=== PATIENT | female | born 1980 | race Caucasian/White ===

== ENCOUNTER 2016-07-20 16:23 | Emergency (ER) | payer OTHER ==
[~2016-07-20 16:23] MED LIST: ACIPHEX20 MG PO; ALBUTEROL17 GM; ANTI-ITCH28 GM TOP; ANTIBIOTIC; ATARAX PO; BAYER ASPIRIN325 M1; BENADRYL25 M1 PO; BUSPAR PO; CELEXA PO; CIPRO; COMBIVENT INH14.7 GM; COMBIVENT INH14.7 GM INH; COMBIVENT U/D3 ML INH; DEPAKOTE PO; DICLOFENAC PO; FLEXERIL10 MG PO; IBUPROFEN800 MG PO; KEFLEX500 M1 PO; MEDROL PO; NAPROSYN500 MG PO; NEURONTIN PO; PERCOCET; PERCOCET5/325 PO; PHENERGAN25 M1 PO; PHENERGAN25 MG PO; PROVERA10 MG PO; PROZAC; PYRIDIUM; PYRIDIUM PO; ROBAXIN500 MG PO; SEROQUEL PO; SILVADENE TOP; SYMBICORT; TRAZODONE PO; TYLENOL #3 PO; TYLENOL325 M1 PO; ULTRAM PO; VIBRAMYCIN100 M1 PO; VICODIN 5/1 TAB 5/50 PO; WELLBUTRIN XL PO; WELLBUTRIN75 M1 PO; ZYRTEC; ZYRTEC10 M2
== END 2016-07-20 16:30 | disposition left against medical advice (07) ==
LOC: CED 16:23
DX: T40.1X1A Poisoning by heroin, accidental (unintentional), initial encounter (principal); J45.909 Unspecified asthma, uncomplicated; F32.9 Major depressive disorder, single episode, unspecified; F17.200 Nicotine dependence, unspecified, uncomplicated; Z79.899 Other long term (current) drug therapy
CPT/HCPCS: 99283

== ENCOUNTER 2016-10-22 04:19 | Emergency (ER) | payer OTHER | END 2016-10-22 05:11 | disposition home or self-care (01) | LOC: CED 04:19 | DX: L03.113 Cellulitis of right upper limb (principal); F15.10 Other stimulant abuse, uncomplicated; K21.9 Gastro-esophageal reflux disease without esophagitis; F41.9 Anxiety disorder, unspecified; F17.210 Nicotine dependence, cigarettes, uncomplicated; Z98.890 Other specified postprocedural states; Z88.1 Allergy status to other antibiotic agents; Z88.8 Allergy status to other drugs, medicaments and biological substances; Z23 Encounter for immunization | CPT/HCPCS: 90471; 90715; 96372; 99283; J1885 ==

== ENCOUNTER 2016-10-24 07:57 | Inpatient (IN) | payer OTHER ==
--- NOTE | ~2016-10-24 | HP ---
Unit #: [id number] #: [id number] Patient: GET PAIGE [id number] [address] [address] [id number] I MR#: [id number] NAME: GET PAIGE ROOM: 40476 Age: 36 Sex: F Admission Date: 10/24/2016 : 1980 Attending Physician: Marcy Rojas M.D. Primary Care Physician: [facility] HISTORY AND PHYSICAL CHIEF COMPLAINT Overdose. HISTORY OF PRESENT ILLNESS The patient is a 36-year-old female with a past medical history of polysubstance abuse, asthma, depression, allergic rhinitis, degenerative joint disease, GERD, who presented to the emergency department for evaluation of the above. History is obtained from chart review and discussion with the ER staff due to patient's altered mental status. She was apparently a daily IV methamphetamine user. She was found shooting up in another patient's car on the evening prior to admission but security let her go. Today, she was found running and screaming on hospital property. She was brought to the emergency department for further evaluation. In the emergency department, initial pulse and blood pressure were 93 and 119/72 respectively. Urine tox screen is positive for amphetamine and opiates. Glucose is 52. CPK is 1045. She was given 2 L of normal saline as well as an amp of D50. She is being admitted to [facility] for evaluation and further treatment. PAST MEDICAL HISTORY 1. Admission to [facility] December 27 through the 2014, for right antecubital fossa cellulitis/abscess. She underwent incision and drainage during that admission. Wound culture grew MSSA. 2. Asthma. 3. Depression. 4. Allergic rhinitis. 5. Degenerative joint disease. 6. GERD. PAST SURGICAL HISTORY 1. Incision and drainage right antecubital fossa. 2. Left leg surgery. SOCIAL HISTORY Per record review, the patient lives with her sister. She is an IV drug user. She is also a smoker. FAMILY HISTORY Unobtainable due to altered mental status. Unit #: [id number] #: [id number] Patient: GET PAIGE ALLERGIES Citalopram, vancomycin, linezolid. HOME MEDICATIONS Zoloft. REVIEW OF SYSTEMS A complete review of systems is unobtainable from the patient due to altered mental status. DIAGNOSTIC STUDIES CARDIOVASCULAR: EKG shows sinus tachycardia with a rate of 135 beats/minute. LABORATORY: Initial glucose was 52, INR is 1.1. Beta hCG is negative. Comprehensive metabolic panel notable for CO2 of 20, anion gap of 10, glucose 46. Calcium is 12.1. AST and ALT are 153 and 210 respectively. Alkaline phosphatase is 96. CPK is 1045. Salicylate and alcohol levels are negative. Tylenol level is 30. Complete blood count notable for white blood cell count of 18.6. Urinalysis notable for trace protein, 2+ blood. Urine tox screen is positive for amphetamine and opiates. PHYSICAL EXAMINATION VITAL SIGNS: Temperature is 98, pulse 93, respirations 19, blood pressure 119/72. Oxygen saturation 100% on room air. GENERAL: The patient is a white female who is lethargic but wakes to physical stimuli. HEENT: The head is atraumatic. Mucous membranes are dry. NECK: Supple. Trachea is midline. CARDIOVASCULAR: Regular rate and rhythm. LUNGS: Clear to auscultation bilaterally with no increased work of breathing. ABDOMEN: Soft, nontender. Bowel sounds present in all four quadrants. EXTREMITIES: Nontender with no pedal edema. NEURO: The patient is lethargic but wakes to physical stimuli. She is moving all extremities. PSYCH: The patient demonstrates poor insight and judgement. SKIN: Demonstrates multiple injection sites and sores on extremities. ASSESSMENT The patient is a 36-year-old female with: 1. Altered mental status secondary to #2. 2. Polysubstance abuse: The patient's tox screen was positive for amphetamine and opiates. 3. Hypoglycemia with an initial glucose of 52 and glucose of 46 on comprehensive metabolic panel. The patient received an amp of D50. There is no history of diabetes. 4. Transaminitis. 5. Rhabdomyolysis with an initial CPK of 1045. 6. Leukocytosis with no obvious source of infection. 7. Hypercalcemia. 8. History of asthma. Unit #: [id number] #: [id number] Patient: GET PAIGE 9. Depression. 10. Allergic rhinitis. 11. Degenerative joint disease. 12. Gastroesophageal reflux disease. 13. Tobacco abuse. PLAN 1. Admit for observation to intermediate level. 2. NPO until awake and passes bedside swallow. 3. TSH, B12 and folate. 4. Neuro checks q.[address] Alonso regarding altered mental status and polysubstance abuse. 6. Sitter. 7. Frequent Accu-Cheks. 8. Hemoglobin A1c. 9. D5 half normal saline at 150 mL/hour, to start now. 10. Right upper quadrant ultrasound regarding transaminitis. 11. HIV and hepatitis panel. 12. Blood cultures x2 for further evaluation of leukocytosis. 13. Chest x-ray again for further evaluation of leukocytosis. 14. Supplemental oxygen. 15. P.r.n. Zofran. 16. Cardiac enzymes. 17. Repeat Tylenol level. 18. SCDs for DVT prophylaxis. 19. Repeat labs in the morning including CPK. 20. Additional workup and consultants based on above. Dictated by Darlin Negron/keiry TD: 10/24/2016 12:15 JOB #: [id number] HISTORY AND PHYSICAL Page 1 of 1 X Marcy Rojas MD X HISTORY AND PHYSICAL
--- NOTE | ~2016-10-24 | CR72 ---
[facility] A Service of [facility] RADIOLOGY TEXT RESULTS PATIENT: GET PAIGE LOCATION: [facility] 337-01 : [birth year] UNIT #: [id number] AGE: [address]: Marcy Rojas MD SEX: F ORDER DR: [id number] [facility] [address]. [place], [place] [address] [id number] I MR#: [id number] Acc #: [id number] NAME: GET PAIGE : 1980 SEX: F STUDY DATE/TIME: 10/24/2016 8:33 UNIT: CEDOF ROOM: 57136 STUDY DESCRIPTION: CR Chest Single View Portable Attending Physician: Marcy Rojas M.D. Ordering Physician: Parish Tobias M.D. Primary Care Physician: [facility] MEDICAL IMAGING REPORT This report is preliminary unless electronic signature is present EXAM Portable chest radiograph INDICATION Overdose this morning. Patient does have a history of asthma and chronic bronchitis. FINDINGS A single AP portable view of the chest shows both lungs to be clear. The heart is normal in size. The mediastinal contour is normal. No significant bone abnormalities are seen. IMPRESSION Negative. Dictated by... Lacy Nava M.D. THIS IS AN ELECTRONICALLY VERIFIED REPORT Lacy Nava M.D. at 10/25/2016 10:49 AM LONDON/edna TD: 10/24/2016 13:56 JOB #: [id number] MEDICAL IMAGING REPORT Page 1 of 1 COPY
--- NOTE | ~2016-10-24 | EKG ---
PATIENT: GET PAIGE UNIT #: [id number] Ventricular Rate: 135 BPM Atrial Rate: 135 BPM P-R Interval: 184 ms QRS Duration: 76 ms Q-T Interval: 248 ms QTC Calculation(Bezet): 372 ms P Rubicon: 65 degrees Calculated R Rubicon: 75 degrees Calculated T Rubicon: -17 degrees Diagnosis Line: Sinus tachycardia Diagnosis Line: ST and T wave abnormality, consider inferior Diagnosis Line: ischemia Diagnosis Line: Abnormal ECG Diagnosis Line: No previous ECGs available Diagnosis Line: Confirmed by FELICIA GONZALEZ MD ([id number]) on 10/25/2016 Diagnosis Line: 4:38:34 PM INTERPRETING MD: CARLOS SOSA
--- NOTE | ~2016-10-24 | CO ---
Unit #: [id number] #: [id number] Patient: EGT PAIGE [id number] [address] [address] [id number] I MR#: [id number] NAME: GET PAIGE ROOM: 337 Age: 36 Sex: F Admission Date: 10/24/2016 : 1980 Attending Physician: Kimberly Frances M.D. Primary Care Physician: [facility] Consultation Date: 10/26/2016 CONSULTATION REPORT REASON FOR CONSULTATION Followup. DISCUSSION Ms. Get Paige is a 36-year-old white female, seen in room 337, bed 1 on 10/26/2016. The patient was admitted after overdose. The patient is sad, dysphoric, flat affect, withdrawn, dressed in hospital attire, lying comfortably in bed. The patient is compliant and cooperative and has a sitter and the patient did not show any agitation. The patient's blood glucose 176 this morning. The patient's vital signs; temperature is 98.2, pulse 87, respiratory rate 18, blood pressure 128/74, oxygen saturation 97%. The patient is currently on no psychotropic medication. The patient's urine toxicology was positive for amphetamine and opiates. REVIEW OF SYSTEMS Complete review of system is unremarkable. MENTAL STATUS EXAMINATION The patient's vital signs; temperature 98.2, pulse 87, respiratory rate 18, blood pressure 128/74, and oxygen saturation 97%. General appearance; the patient is moderately obese, dressed casually. Attention span and concentration, fair. Speech, regular rate and monotone. Mood and affect, sad and dysphoric. Thought process, coherent. Thought content, the patient denied any thoughts of harming others, but recent suicide attempt. Denied any current suicidal ideation. Recent and remote memory, fair. Language, intact. Fund of knowledge, fair. Insight and judgment, fair to slightly impaired. DIAGNOSES Psychiatric: 1. Major depressive disorder, recurrent, severe, F33.2. 2. Opioid use disorder, severe, F11.20. 3. Amphetamine use disorder, severe, F15.20. ASSESSMENT/PLAN 1. Supportive psychotherapy and psychoeducation provided to the patient. 2. Educated about benefits and side effects of medication and course and prognosis of illness. 3. Advised to continue with current treatment with a plan to consider transferring the patient to [facility] for psychiatric stabilization. Please feel free to call if any questions, telephone #[phone]. Unit #: [id number] #: [id number] Patient: GET PAIGE Dictated by... Darlin Mendoza/hakeem TD: 10/26/2016 23:34 JOB #: [id number] CONSULTATION REPORT Page 1 of 1 X Noe Alonso MD X CONSULTATION REPORT
--- NOTE | ~2016-10-24 | CO ---
Unit #: [id number] #: [id number] Patient: GET PAIGE [id number] [address] [address] [id number] I MR#: [id number] NAME: GET PAIGE ROOM: 337 Age: 36 Sex: F Admission Date: 10/24/2016 : 1980 Attending Physician: Marcy Rojas M.D. Primary Care Physician: [facility] CONSULTATION REPORT JOB NOTE: ADDENDUM ADDENDUM PAST PSYCHIATRIC HISTORY History of IV drug abuse, history of depression. MEDICAL HISTORY Remarkable for history of last admission in 2014 for antecubital fossa cellulitis abscess, asthma, depression, allergic rhinitis, degenerative joint disease, GERD. MEDICATIONS The patient is on Zofran and IV fluids. FAMILY HISTORY AND SOCIAL HISTORY The patient has a poor support system. No history of abuse. History of IV drug abuse. Drug of choice is amphetamine and opioids. REVIEW OF SYSTEMS Complete review of system is unremarkable except as mentioned above. MENTAL STATUS EXAMINATION Vital signs; temperature 98.2, pulse 95, respiratory rate 20, blood pressure 135/89, and oxygen saturation 98%. General appearance; the patient dressed casually, no facial deformity noted, in hospital attire. Attention span and concentration, poor. Speech, slow and drifting into sleep. Orientation in self and place. Mood and affect, labile. Thought process, circumstantial. Thought content, guarded and paranoid. Reported taking overdose and did not elaborate, somewhat guarded and paranoid. Recent and remote memory, poor. Language, fair to poor. Fund of knowledge, poor. Insight and judgment, impaired. DIAGNOSES Psychiatric: Major depressive disorder, recurrent, severe, F33.2; delirium, F05; opioid use disorder, severe, F11.20; amphetamine use disorder, severe, F15.20. Secondary diagnosis: Deferred. Medical diagnosis: Please refer to H and P. Stressors: Psychosocial stressors. Unit #: [id number] #: [id number] Patient: GET PAIGE ASSESSMENT/PLAN 1. Supportive psychotherapy and psychoeducation provided to the patient. 2. Educated about benefits and side effects of medication and course and prognosis of illness. 3. Advised no medication at this time. Monitor the patient's mood and behavior closely. If needed, consider medication. Plan to stabilize the patient and consider transferring the patient to [facility] for inpatient psychiatric stabilization. Please feel free to call if any questions, telephone #[phone]. Dictated by... Noe Alonso M.D. MARI/hakeem TD: 10/25/2016 23:08 JOB #: [id number] CONSULTATION REPORT Page 1 of 1 X Noe Alonso MD X CONSULTATION REPORT
--- NOTE | ~2016-10-24 | US5 ---
[facility] A Service of [facility] RADIOLOGY TEXT RESULTS PATIENT: GET PAIGE LOCATION: [facility] : 78 UNIT #: [id number] AGE: [address]: Marcy Rojas MD SEX: F ORDER DR: [id number] [facility]. [place], [place] [address] [id number] I MR#: [id number] Acc #: [id number] NAME: GET PAIGE : 1980 SEX: F STUDY DATE/TIME: 10/24/2016 12:43 [facility]: [facility] STUDY DESCRIPTION: US Abdominal Complete Attending Physician: Marcy Rojas M.D. Ordering Physician: Marcy Rojas M.D. Primary Care Physician: [facility] MEDICAL IMAGING REPORT This report is preliminary unless electronic signature is present EXAM Abdominal sonogram. HISTORY Abdominal pain for 1 day. FINDINGS Longitudinal and transverse sonograms of the abdomen were obtained. Liver is sonographically normal. Gallbladder appears unremarkable. Right kidney measures at least 10.2 cm. Common duct measures 9 mm in diameter. Aorta is of normal caliber. The left kidney measures 12.3 cm and appears sonographically normal. Spleen measures 10.8 cm and appears normal. Pancreas is not seen. CONCLUSIONS 1. Mild extrahepatic biliary dilatation with common duct measuring up to 9 mm. 2. Nonvisualization of the pancreas. 3. Limited study due to the patient's body habitus. All other findings are normal. Dictated by... Sebas Porter M.D. THIS IS AN ELECTRONICALLY VERIFIED REPORT Sebas Porter M.D. at 10/25/2016 9:17 AM LYDIA/bart TD: 10/24/2016 19:04 JOB #: [id number] MEDICAL IMAGING REPORT [facility] A Service [facility] RADIOLOGY TEXT RESULTS PATIENT: GET PAIGE LOCATION: [facility] : 78 UNIT #: [id number] AGE: [address]: Marcy Rojas MD SEX: F ORDER DR: Page 1 of 1 COPY
--- NOTE | ~2016-10-24 | CO ---
Unit #: [id number] #: [id number] Patient: GET PAIGE [id number] [address] [address] [id number] I MR#: [id number] NAME: GET PAIGE ROOM: 337 Age: 36 Sex: F Admission Date: 10/24/2016 : 1980 Attending Physician: Kimberly Frances M.D. Primary Care Physician: [facility] Consultation Date: 10/27/2016 CONSULTATION REPORT REASON FOR CONSULTATION Followup. DISCUSSION Ms. Get Paige is a 36-year-old female, seen in room 337, bed 1 on 10/27/2016 at [facility]. The patient was admitted with the overdose. The patient is followed since admission. Reports feeling better. Denied any suicidal ideation or homicidal ideation. The patient is agreeable to follow up in the outpatient program. The patient reports that she has a good support system from her and other family member. The patient was compliant, cooperative, and showed improvement in her mood. Vital signs; temperature 98.7, pulse 64, respiratory rate 18, blood pressure 142/86, and oxygen saturation 98%. The patient is currently denied any suicidal or homicidal ideation. Denied any psychotic symptom. REVIEW OF SYSTEMS Complete review of systems unremarkable. MENTAL STATUS EXAMINATION The patient's vital signs; temperature 98.7, pulse 64, respiratory rate 18, blood pressure 142/86, and oxygen saturation 98%. General appearance; the patient dressed casually, lying comfortably in bed. Attention span and concentration, fair. Speech, regular rate and coherent. Oriented in time, place, and person. Mood and affect; sad, dysphoric, made good eye contact, cooperative. Thought process, coherent. Thought content, the patient denied any thoughts of harming self or others or any psychotic symptom. Recent and remote memory, fair. Language, intact. Fund of knowledge, fair to slightly impaired. DIAGNOSIS Psychiatric: Major depressive disorder, recurrent, severe, F33.2. ASSESSMENT/PLAN 1. Supportive psychotherapy and psychoeducation provided to the patient. 2. Educated about benefits and side effects of medication and course and prognosis of illness. 3. Advised to continue with current treatment with a plan to consider discharge home once the patient is medically stable and follow up in [facility]. The patient agreed with the plan. Please feel free to call if any questions, telephone #[phone]. Unit #: [id number] #: [id number] Patient: GET PAIGE Dictated by... Darlin Mendoza/hakeem TD: 10/27/2016 22:31 JOB #: [id number] CONSULTATION REPORT Page 1 of 1 X Noe Alonso MD X CONSULTATION REPORT
--- NOTE | ~2016-10-24 | CO ---
Unit #: [id number] #: [id number] Patient: GET PAIGE [id number] [facility] [address] [facility]. [place], [place] [address] [id number] I MR#: [id number] NAME: GET PAIGE ROOM: 337 Age: 36 Sex: F Admission Date: 10/24/2016 : 1980 Attending Physician: Marcy Rojas M.D. Primary Care Physician: [facility] Consultation Date: 10/24/2016 CONSULTATION REPORT REASON FOR CONSULTATION Initial psych assessment. HISTORY OF PRESENT ILLNESS Ms. Get Beyer is a 36-year-old white female, seen in room 337, bed 1 on 10/24/2016 at [facility]. The patient dressed casually, somewhat sleepy, drowsy, drifting in sleep. During interview, the patient reported history of depression, history of substance abuse. Coming to the hospital, not able to give a coherent history, very sleepy and drowsy. The patient's information obtained from the chart, nursing staff, sitter. The patient did not show any agitation, but confused. PAST PSYCHIATRIC HISTORY Remarkable for history of depression. The patient reports she takes medication for depression. The patient has a history of polysubstance abuse, IV drug abuse. Last admitted in 2014 at [facility] with right cubital fossa cellulitis with abscess. SEE ADDENDUM Dictated by... Darlin Mendoza/hakeem TD: 10/26/2016 00:01 JOB #: [id number] CONSULTATION REPORT Page 1 of 1 X Noe Alonso MD X CONSULTATION REPORT
--- NOTE | ~2016-10-24 | DS ---
Unit #: [id number] #: [id number] Patient: GET PAIGE [id number] [address] [address] [id number] I MR#: [id number] NAME: GET PAIGE ROOM: 337 Age: 36 Sex: F Admission Date: 10/24/2016 : 1980 Discharge Date: Attending Physician: Kimberly Frances M.D. Primary Care Physician: [facility] DISCHARGE SUMMARY DISCHARGE DIAGNOSES 1. Polysubstance abuse, positive for amphetamines and opiates. 2. Hypoglycemia. 3. Transaminitis secondary to overdose. 4. Fever. Initial diagnosis of sepsis but no source of infection found. Blood cultures, chest x-ray and urinalysis negative. Likely secondary to overdose. 5. Acute rhabdomyolysis. 6. Leukocytosis. No obvious source of infection. 7. Hypercalcemia. 8. History of asthma. 9. Diarrhea, clostridium difficile pending. 10. Toxic metabolic encephalopathy, resolved. 11. Occult positive stool secondary to menstrual blood. 12. Depression, which is major depressive according to Dr. Alonso. 13. Smoking. 14. Gastroesophageal reflux disease. 15. Degenerative joint disease. 16. Hypomagnesemia. 17. Hypocalcemia. CONSULTATIONS Dr. Alonso. PROCEDURES None. DIAGNOSTIC TESTING LAB DATA: Glucose 98, sodium 140, potassium 3.8, creatinine 0.7, AST 57, ALT 107, total protein 5.8, albumin 3. WBC 9.1, hemoglobin 11.5, platelets 212. Occult blood in stool positive. C. diff. pending. Blood cultures negative. Urinalysis - No sign of infection. IMAGING: Chest x-ray negative. Ultrasound of the abdomen - Mild extrahepatic biliary dilatation. No other acute findings. ALLERGIES Vancomycin, Celexa, Zyvox. DISCHARGE MEDICATIONS None. Unit #: [id number] #: [id number] Patient: GET PAIGE HOSPITALIZATION COURSE A 36 year old admitted because of overdose with amphetamines and opiates. Patient was seen by Dr. Alonso. The patient is under 72-hour hold with a sitter. [facility] The patient is medically stable to go to [facility]. Major depression. The patient was seen by Dr. Alonso. Treatment as per him. Change in mental status, toxic metabolic encephalopathy from drug overdose. Fever, likely from overdose. No source of infection. Diarrhea. C. diff. pending. Currently diarrhea better. Hypoglycemia secondary to poor p.o. intake from change in mental status. Currently resolved. Occult blood positive in stool. Secondary to mixing of menstrual blood. No active bleeding otherwise. Acute rhabdomyolysis. The patient received IV fluids. Currently resolved. PLAN Patient is medically stable to go to [facility]. Follow with family physician 1 week upon discharge. DISCHARGE DISPOSITION Discharge to [facility]. NOTE: Discharge time taken is 32 minutes. Dictated by... Darlin Roach/tessy TD: 10/27/2016 11:52 JOB #: [id number] DISCHARGE SUMMARY Page 1 of 1 X Kimberly Frances MD X DISCHARGE SUMMARY
[2016-10-24 09:31] LABS: BASOPHIL% 0.1 % (0-2.5); EOSINOPHIL% 0.3 % (0.0-7.0); HEMATOCRIT 39.3 % (35.0-45.0); HEMOGLOBIN 12.8 gm/dL (12.0-16.0); LYMPHOCYTE# 0.9 X10e3 (1.0-3.5); LYMPHOCYTE% 4.7 % (17.0-45.0); MEAN CELL VOLUME 96.4 FL (83-96); MEAN CORPUSCULAR HEMOGLOBIN 31.4 PG (28-34); MEAN CORPUSCULAR HGB CONC 32.5 g/dL (30-36); MEAN PLATELET VOLUME 8.3 FL (6.5-11.5); MONOCYTE# 1.1 X10e3 (0-1.0); MONOCYTE% 5.7 % (3.0-12.0); NEUTROPHIL# 16.6 X10e3 (1.5-7.1); NEUTROPHIL% 89.2 % (40-75); PLATELET COUNT 267 X10e3 (140-420); RED BLOOD COUNT 4.08 X10e (3.90-5.30); RED CELL DISTRIBUTION WIDTH 13.8 % (11.0-15.5); WHITE BLOOD COUNT 18.6 X10e3 (4.0-10.5)
[2016-10-24 09:33] LABS: DIFF IND YES
[2016-10-24 09:38] LABS: INR 1.1
[2016-10-24 09:55] LABS: ACETAMINOPHEN 30 ug/mL; ALBUMIN SERUM 4.1 g/dL (3.5-5.0); ALKALINE PHOSPHATASE 96 U/L (32-92); ALT (SGPT) 210 U/L (10-40); AST (SGOT) 153 U/L (10-42); BILIRUBIN, DIRECT 0.4 mg/dL (0.0-0.2); BILIRUBIN,INDIRECT 0.5 mg/dL (0.0-0.9); BILIRUBIN,TOTAL 0.9 mg/dL (0.2-2.0); BLOOD UREA NITROGEN 13 mg/dL (9-23); BUN/CREATININE RATIO 10.83; CALCIUM SERUM 12.1 mg/dL (8.4-10.2); CARBON DIOXIDE 20 mmol/L (22-31); CHLORIDE 106 mmol/L (100-111); CPK (CREATINE PHOSPHOKINASE) 1045 IU/L (26-140); CREATININE SERUM 1.2 mg/dL (0.6-1.4); GLOM FILT RATE Estimated 57.7 mL/min (>60); POTASSIUM 3.6 mmol/L (3.5-5.1); PROTEIN TOTAL SERUM 6.8 g/dL (6.0-8.3); SALICYLATE <4.0 mg/dL; SODIUM 136 mmol/L (135-145)
[2016-10-24 09:56] LABS: ALCOHOL BLOOD <5 mg/dL (0); GLUCOSE FASTING 46 mg/dL (70-110); PLATELET ESTIMATE NORMAL (NORMAL)
[2016-10-24 10:40] LABS: URINE SOURCE CLEAN CATCH
[2016-10-24 10:46] LABS: URINE APPEARANCE CLEAR; URINE BILIRUBIN NEG (NEG); URINE BLOOD 2+ (NEG); URINE COLOR YELLOW; URINE GLUCOSE NEG (NEG); URINE KETONE NEG (NEG); URINE LEUKOCYTE ESTERASE NEG (NEG); URINE NITRATE NEG (NEG); URINE PROTEIN TRACE (NEG); URINE SPECIFIC GRAVITY 1.014 (1.003-1.035)
[2016-10-24 10:48] LABS: CULTURE INDICATED? NO
[2016-10-24 11:12] LABS: AMPHETAMINE POS (NEG); BARBITURATES NEG (NEG); BENZODIAZEPINES NEG (NEG); COCAINE NEG (NEG); MARIJUANA NEG (NEG); OPIATES POS (NEG); TRICYCLIC ANTIDEPRESSANTS NEG (NEG); U METHADONE NEG (NEG)
[2016-10-24 14:21] LABS: %MB 2.9 % (0.0-4.0); MB 31.4 ng/ml
[2016-10-24 19:03] LABS: %MB 3.5 % (0.0-4.0); MB 30.9 ng/ml
[2016-10-25 00:20] LABS: %MB 4.9 % (0.0-4.0); MB 20.2 ng/ml
[2016-10-25 06:37] LABS: FOLATE (FOLIC ACID) 6.4 ng/mL (>5.8)
[2016-10-25 06:39] LABS: HEMATOCRIT 36.7 % (35.0-45.0); MEAN CELL VOLUME 97.3 FL (83-96); MEAN CORPUSCULAR HGB CONC 32.9 g/dL (30-36); MEAN PLATELET VOLUME 8.4 FL (6.5-11.5); RED BLOOD COUNT 3.77 X10e (3.90-5.30); RED CELL DISTRIBUTION WIDTH 13.7 % (11.0-15.5)
[2016-10-25 07:05] LABS: ALBUMIN SERUM 3.1 g/dL (3.5-5.0); BILIRUBIN,TOTAL 1.1 mg/dL (0.2-2.0); BUN/CREATININE RATIO 11.25; CREATININE SERUM 0.8 mg/dL (0.6-1.4); GLOM FILT RATE Estimated 94.3 mL/min (>60); POTASSIUM 3.6 mmol/L (3.5-5.1); PROTEIN TOTAL SERUM 5.7 g/dL (6.0-8.3)
[2016-10-25 07:12] LABS: CALCIUM SERUM 9.6 mg/dL (8.4-10.2)
[2016-10-26 07:57] LABS: HEMATOCRIT 33.2 % (35.0-45.0); HEMOGLOBIN 11.1 gm/dL (12.0-16.0); MEAN CELL VOLUME 97.3 FL (83-96); MEAN CORPUSCULAR HEMOGLOBIN 32.4 PG (28-34); MEAN CORPUSCULAR HGB CONC 33.3 g/dL (30-36); MEAN PLATELET VOLUME 8.1 FL (6.5-11.5); RED BLOOD COUNT 3.41 X10e (3.90-5.30); RED CELL DISTRIBUTION WIDTH 13.9 % (11.0-15.5); WHITE BLOOD COUNT 13.6 X10e3 (4.0-10.5)
[2016-10-26 08:20] LABS: ALBUMIN SERUM 2.8 g/dL (3.5-5.0); BILIRUBIN,TOTAL 0.7 mg/dL (0.2-2.0); BUN/CREATININE RATIO 8.75; CALCIUM SERUM 8.4 mg/dL (8.4-10.2); CREATININE SERUM 0.8 mg/dL (0.6-1.4); GLOM FILT RATE Estimated 94.3 mL/min (>60); MAGNESIUM 1.5 mg/dL (1.6-3.0); POTASSIUM 3.6 mmol/L (3.5-5.1); PROTEIN TOTAL SERUM 5.3 g/dL (6.0-8.3)
[2016-10-26] MEDS ORDERED: ZOLOFT100 MG PO (10:23)
[2016-10-26] MEDS ORDERED: HYDROXYZINE HCL50 MG PO (10:23)
[2016-10-26] MEDS ORDERED: SEROQUEL100 MG PO (10:23)
[2016-10-27 05:43] LABS: HEMATOCRIT 34.2 % (35.0-45.0); HEMOGLOBIN 11.5 gm/dL (12.0-16.0); MEAN CELL VOLUME 96.7 FL (83-96); MEAN CORPUSCULAR HEMOGLOBIN 32.7 PG (28-34); MEAN CORPUSCULAR HGB CONC 33.8 g/dL (30-36); MEAN PLATELET VOLUME 7.9 FL (6.5-11.5); RED BLOOD COUNT 3.53 X10e (3.90-5.30); RED CELL DISTRIBUTION WIDTH 13.6 % (11.0-15.5); WHITE BLOOD COUNT 9.1 X10e3 (4.0-10.5)
[2016-10-27 06:56] LABS: BILIRUBIN,TOTAL 0.7 mg/dL (0.2-2.0); BUN/CREATININE RATIO 7.14; CALCIUM SERUM 8.1 mg/dL (8.4-10.2); CREATININE SERUM 0.7 mg/dL (0.6-1.4); GLOM FILT RATE Estimated 110.7 mL/min (>60); POTASSIUM 3.8 mmol/L (3.5-5.1); PROTEIN TOTAL SERUM 5.8 g/dL (6.0-8.3)
[2016-10-29 13:35] LABS: HA AB IGM (HEPPAN) Nonreactive (()); HB CORE AB IGM (HEPPAN) Nonreactive (Nonreactive); HB S AG (HEPPAN) Nonreactive (Nonreactive); HEP C AB (HEPPAN) Reactive (Nonreactive); HEP C AB SIGNAL TO CUTOFF 5.96 ratio (<1.00)
== END 2016-10-27 16:33 | disposition home or self-care (01) | DRG 917 ==
LOC: CED 07:57 → CEDOF 11:25 → C3A PCU 11:25 → CED 11:25 → C3A PCU 11:25 → CEDOF 11:49 → CED 11:49 → C3A PCU 15:19 → CEDOF 15:19 → C3A PCU 10-26 08:31
PROVIDERS: Emergency Medicine; Family Medicine; Internal Medicine
PROC: 3E0234Z Introduction of Serum, Toxoid and Vaccine into Muscle, Percutaneous Approach (ICD-10-PCS; principal; 2016-10-27)
DX: T43.621A Poisoning by amphetamines, accidental (unintentional), initial encounter (principal); G92 Toxic encephalopathy; M62.82 Rhabdomyolysis; E87.2 Acidosis; F33.2 Major depressive disorder, recurrent severe without psychotic features; E83.42 Hypomagnesemia; E44.1 Mild protein-calorie malnutrition; F15.20 Other stimulant dependence, uncomplicated; F11.20 Opioid dependence, uncomplicated; E83.52 Hypercalcemia; T40.601A Poisoning by unspecified narcotics, accidental (unintentional), initial encounter; R50.9 Fever, unspecified; F17.210 Nicotine dependence, cigarettes, uncomplicated; K21.9 Gastro-esophageal reflux disease without esophagitis; M19.90 Unspecified osteoarthritis, unspecified site; R74.0 Nonspecific elevation of levels of transaminase and lactic acid dehydrogenase [LDH]; R19.7 Diarrhea, unspecified; E16.2 Hypoglycemia, unspecified; Z23 Encounter for immunization
CPT/HCPCS: 36415; 51701; 71010; 76700; 80048; 80053; 80074; 80076; 80307; 81003; 82274; 82550; 82553; 82607; 82746; 82947; 83036; 83605; 83735; 84443; 84484; 84703; 85025; 85027; 85610; 87040; 87493; 87522; 87806; 90732; 92610; 93005; 94640; 94760; 96361; 96374; 99291; G0009; G0480; G8996-GN; G8997-GN; G8998-GN; J2060; J2270; J2543; J3475